=== PATIENT | male | born 1935 | race Caucasian/White ===

== ENCOUNTER 2017-05-01 17:38 | Inpatient (IN) | payer MEDICARE ==
[~2017-05-01] VITALS: Ht 162.6 cm; Wt 81.2 kg
[~2017-05-01 17:38] MED LIST: SIMV40TA5 PO; WARF1TAB6 PO; WARF5TAB6 PO
--- NOTE | 2017-05-01 19:30 | NUR ---
RN NOTES PATIENT ADMITTED FROM [place]. BROUGHT IN [facility] WITH TRANSPORT STAFF. PLACED LDR RN. CLEANED AND KEPT COMFORTABLE.
[2017-05-01 20:00] VITALS: BP 120/80
[2017-05-01] MEDS ORDERED: DOCU100C36 PO ×2 (21:22)
[2017-05-01] MEDS ORDERED: POTA20TA83 PO (21:22)
[2017-05-01] MEDS ORDERED: MULT1TAB73 PO (21:22)
[2017-05-01] MEDS ORDERED: METO25TA6 PO (21:22)
[2017-05-01] MEDS ORDERED: ASCO500T9 PO (21:22)
[2017-05-01] MEDS ORDERED: ZOLPIDEM TARTRATE 5 MG TABLET PO PRN (22:30)
[2017-05-01] MEDS ORDERED: Z GUARD REMEDY 2 OZ OINT TP PRN (22:30)
[2017-05-01] MEDS ORDERED: ACETAMINOPHEN 325 MG TABLET PO PRN (22:30)
[2017-05-01] MEDS ORDERED: ONDANSETRON HCL/PF 4 MG/2 ML VIAL IVP PRN (22:30)
[2017-05-01] MEDS ORDERED: MAGNESIUM HYDROXIDE 30 ML UDC PO PRN (22:30)
[2017-05-01] MEDS ORDERED: MAG HYDROX/AL HYDROX/SIMETH 30 ML UDC PO PRN (22:30)
[2017-05-01] MEDS ORDERED: HYDROCODONE/APAP 5/325MG 1 EACH TABLET PO PRN (22:30)
[2017-05-01] MEDS ORDERED: IV NS 0.9% 1,000 ML IV PRN (23:00)
[2017-05-01 23:15] LABS: BASOPHILS % (AUTO) 0.2 % (0.0-2.0); EOSINOPHILS # (AUTO) 0.1 /CMM (0.0-0.7); EOSINOPHILS % (AUTO) 0.5 % (0.0-6.0); HEMATOCRIT 29 % (39-51); HEMOGLOBIN 9.7 g/dL (13.5-17.5); LYMPHOCYTES # (AUTO) 1.2 /CMM (0.8-4.8); LYMPHOCYTES % (AUTO) 12.2 % (20.0-44.0); MEAN CORPUSCULAR HEMOGLOBIN 29 PG (26.0-33.0); MEAN CORPUSCULAR HGB CONC 34 g/dl (31.0-36.0); MEAN CORPUSCULAR VOLUME 88 fL (80-96); MONOCYTES # (AUTO) 0.7 /CMM (0.1-1.30); MONOCYTES % (AUTO) 6.9 % (2.0-12.0); NEUTROPHILS % (AUTO) 80.2 % (43.0-81.0); PLATELET COUNT (AUTO) 138 /CMM (150-450); RDW COEFFICIENT OF VARIATION 18.4 (11.5-15.0)
[2017-05-01 23:45] LABS: ALANINE AMINOTRANSFERASE 51 U/L (12-78); ALBUMIN 2.6 g/dL (3.4-5.0); ALKALINE PHOSPHATASE 41 U/L (46-116); ASPARTATE AMINOTRANSFERASE 29 U/L (15-37); B-TYPE NATRIURETIC PEPTIDE 470 PG/ML (0-125); BILIRUBIN,TOTAL 0.6 mg/dL (0.2-1.0); CARBON DIOXIDE 22 mmol/L (21-32); CHLORIDE 119 mmol/L (98-107); GLUCOSE 104 mg/dL (74-106); PHOSPHORUS 4.1 mg/dL (2.5-4.9); POTASSIUM 3.6 mmol/L (3.5-5.1); SODIUM SERUM 152 mmol/L (136-145); TOTAL PROTEIN, SERUM 5.8 g/dL (6.4-8.2)
[2017-05-01 23:56] LABS: UREA NITROGEN, BLOOD 53 mg/dL (7-18)
[2017-05-02] VITALS: BP 128/67
[2017-05-02 00:10] LABS: APPEARANCE,URINE CLOUDY (CLEAR); BILIRUBIN,URINE NEGATIVE (NEGATIVE); BLOOD, URINE NEGATIVE Ery/uL (NEGATIVE); COLOR,URINE YELLOW (YELLOW); KETONES,URINE NEGATIVE (NEGATIVE); LEUKOCYTE ESTERASE ,URINE 3+ (NEGATIVE); NITRITE, URINE POSITIVE (NEGATIVE); PH,URINE 7.5 (5.0-8.0); PROTEIN,URINE 1+ mg/dl (NEGATIVE); UGLUCOSE NEGATIVE (NEGATIVE); UROBILINOGEN,URINE 0.2 EU/dL (0.2)
[2017-05-02 00:20] LABS: BACTERIA,URINE Many /HPF (None Seen); RBC,URINE 21-50 /HPF (0-2); WBC,URINE 0-2 /HPF (0-3)
[2017-05-02 00:21] LABS: SQUAMOUS EPITHELIAL CELL,UR None Seen /HPF (None Seen); URINE AMORPHOUS PHOSPHATES Moderate /HPF (None Seen)
[2017-05-02] MEDS ORDERED: VANCOMYCIN 1 GM in IV D5W 250 ML IV ONE (01:30)
[2017-05-02] MEDS ORDERED: PIPERACILLIN /TAZOBACTAM 3.375 G in IV D5W 50 ML IV ONE (01:30)
[2017-05-02] MEDS ORDERED: PIPERACILLIN /TAZOBACTAM 3.375 G VIAL IV ONE (01:57)
[2017-05-02] MEDS ORDERED: VANCOMYCIN 1 GM VIAL ONE (01:57)
[2017-05-02 04:00] VITALS: BP 133/70
--- NOTE | 2017-05-02 05:51 | NUR ---
HISTOLOGIC AIDE NOTES NOTED IV SITE ON LEFT AC DISLODGED. MODERATE BLEEDING NOTED. SECURED WITH PRESSURE DRESSING TO STOP BLEEDING. PATIENT WAS SLEEPING AND VERBALZIED HE DID NOT KNOW HOW IT CAME OFF. NO MORE ACTIVE BLEEDING NOTED.
[2017-05-02] MEDS ORDERED: PIPERACILLIN /TAZOBACTAM 3.375 G in IV D5W 50 ML IV SCH (06:00)
[2017-05-02 07:14] LABS: EOSINOPHILS # (AUTO) 0.1 /CMM (0.0-0.7); EOSINOPHILS % (AUTO) 0.9 % (0.0-6.0); HEMATOCRIT 28 % (39-51); HEMOGLOBIN 9.5 g/dL (13.5-17.5); LYMPHOCYTES # (AUTO) 0.9 /CMM (0.8-4.8); LYMPHOCYTES % (AUTO) 9.4 % (20.0-44.0); MEAN CORPUSCULAR HEMOGLOBIN 30 PG (26.0-33.0); MEAN CORPUSCULAR HGB CONC 34 g/dl (31.0-36.0); MEAN CORPUSCULAR VOLUME 88 fL (80-96); MONOCYTES # (AUTO) 0.6 /CMM (0.1-1.30); MONOCYTES % (AUTO) 5.8 % (2.0-12.0); NEUTROPHILS # (AUTO) 8.2 /CMM (1.8-8.9); NEUTROPHILS % (AUTO) 83.9 % (43.0-81.0); PLATELET COUNT (AUTO) 132 /CMM (150-450); RDW COEFFICIENT OF VARIATION 18.6 (11.5-15.0); RED BLOOD CELL COUNT(AUTO) 3.19 MIL/uL (4.5-6.0); WHITE BLOOD COUNT (AUTO) 9.8 K/uL (4.3-11.0)
--- NOTE | 2017-05-02 07:31 | NUR ---
RN NOTES RECEIVED PT FROM RAILROAD BAGGAGE PORTER, A&0X1-2, 2L ON THE NC SATING WELL NO SOB OR DISTRESS NOTED. A FIB ON THE TELE IMTIAZ HR 95. CORDERO DRAINING TO GRAVITY YELLOW IN COLOR. R WRIST 20G IV SITE INTACT IVF 75ML/HR. PT CURRENTLY NPO, AWAITING SWALLOW EVAL. BED LOCKED AND IN LOWEST POSITION, CALL LIGHT WITHIN REACH, SIDE RAILS UPX3, WILL CONT TO IMTIAZ.
[2017-05-02 07:47] LABS: CARBON DIOXIDE 23 mmol/L (21-32); CHLORIDE 121 mmol/L (98-107); GLUCOSE 99 mg/dL (74-106); PHOSPHORUS 3.8 mg/dL (2.5-4.9); POTASSIUM 3.9 mmol/L (3.5-5.1); SODIUM SERUM 154 mmol/L (136-145); UREA NITROGEN, BLOOD 43 mg/dL (7-18)
[2017-05-02 07:56] LABS: CHOLESTEROL 79 mg/dL (<200); HDL CHOLESTEROL 22 mg/dL (40-60); LDL 52 mg/dL (0-99); TRIGLYCERIDES 52 mg/dL (30-150)
[2017-05-02 08:00] VITALS: BP 142/87
[2017-05-02] MEDS ORDERED: SIMVASTATIN 40 MG TABLET PO SCH (09:00)
[2017-05-02] MEDS ORDERED: WARFARIN SODIUM 1 MG TABLET PO SCH (09:00)
[2017-05-02] MEDS ORDERED: WARFARIN SODIUM 5 MG TABLET PO SCH (09:00)
[2017-05-02] MEDS ORDERED: DOCUSATE SODIUM 250 MG CAPSULE PO PRN (09:00)
[2017-05-02] MEDS: PIPERACILLIN /TAZOBACTAM 3.375 G in IV D5W 50 ML IV SCH ×3 (09:03→22:15)
--- NOTE | 2017-05-02 09:29 | NUR ---
RN NOTES 0900 AM MEDS BEING HELD, AWAITING SWALLOW EVAL.
[2017-05-02] MEDS ORDERED: FEE PK DOSING 1 MIN EA MC ONE (10:25)
[2017-05-02] MEDS: IV D5W 1,000 ML IV PRN (10:49)
[2017-05-02] MEDS: ASCORBIC ACID 500 MG TABLET PO SCH (11:49)
[2017-05-02] MEDS: METOPROLOL TARTRATE 25 MG TABLET PO SCH ×2 (11:49→16:13)
[2017-05-02] MEDS: ASPIRIN 81 MG TAB.CHEW PO SCH (11:50)
[2017-05-02 12:00] VITALS: BP 131/77
[2017-05-02 12:40] LABS: INR 11.45 (0.87-1.13)
--- NOTE | 2017-05-02 12:47 | NUR ---
RN NOTES INR 11.45, DR GEORGE MADE AWARE. ORDER TO HOLD COUMADIN.
[2017-05-02] MEDS ORDERED: PHYTONADIONE INJ 10 MG in IV D5W 50 ML IV ONE (13:30)
[2017-05-02] MEDS: VANCOMYCIN 0.75 GM in IV D5W 250 ML IV SCH (14:45)
[2017-05-02 16:00] VITALS: BP 127/78
--- NOTE | 2017-05-02 17:27 | NUR ---
Patient resides at [facility] [id number] [place] [address] [place] [phone].Patient has history of CVA, chronic Afib, HTN, pulmonary HTN, left BKA. Patient is confined to chair most of the time, requires max assist with adl'S. Current plan is to return to [facility] vs short term SNF. Addendum: 05/02/17 at 1728 by ABEBA ROCHA RN Amended: Links added.
[2017-05-02 20:00] VITALS: BP 125/77
--- NOTE | 2017-05-02 20:02 | NUR ---
RN TEL INITIAL NOTES RECEIVED PT FROM NETWORK CONTROLLER, A&0X1-2, 2L ON THE NC SATING WELL NO SOB OR DISTRESS NOTED. NSR 77. CORDERO DRAINING TO GRAVITY YELLOW IN COLOR. R WRIST 20G IV SITE INTACT IVF 75ML/HR. BED LOCKED AND IN LOWEST POSITION, CALL LIGHT WITHIN REACH, SIDE RAILS UPX3, WILL CONT TO IMTIAZ.
[2017-05-02] MEDS: ATORVASTATIN 10 MG TABLET PO SCH (22:14)
[2017-05-03] VITALS: BP 126/77
[2017-05-03] MEDS: PIPERACILLIN /TAZOBACTAM 3.375 G in IV D5W 50 ML IV SCH ×4 (02:17→20:32)
[2017-05-03] MEDS: VANCOMYCIN 0.75 GM in IV D5W 250 ML IV SCH (02:51)
[2017-05-03 04:00] VITALS: BP 143/69
--- NOTE | 2017-05-03 07:27 | NUR ---
LOG CHIPPER OPERATOR NOTES RECEIVED PT ON BED SLEEPING. ALERT ORIENTED X2. EPISODES OF CONFUSION. ON NASAL CANNULA ON AND OFF SATURATING WELL. NO SIGN OF RESPIRATORY DISTRESS. ON TELE MONITOR AFIB CONTROLLED. IV ACCESS ON R WRIST #20 D52 @30CC/HR RUNNING WELL. NO SIGN ON INFILTRATION. HEAD OF BED ELEVATED. SIDE RAILS UP. BED ALARM ON. CALL LIGHT WITHIN REACH. WILL MONITOR PT CLOSELY.
--- NOTE | 2017-05-03 07:27 | NUR ---
RN NOTES PT ASLEEP WELL ON BED. BREATHING EVEN AND UNLABORED IN RA. SATING 96% REMAINED A-FIB HR 90'S COMPLAINED OF GENERALIZED PAIN BUT PRN PAIN MEDICINE HELP AFTER 30 MINUTES. PT ASLEEP AT THIS TIME. NO ASE FROM IV ATB. REFUSED TO HAVE BED BATH PT JUST WANTED TO SLEEP. ENDORSED TO AM SHIFT TO COLLECT STOOL IF THER IS STOOL. CALL LIGHT KEPT WITHIN EASY REACH.
[2017-05-03 08:00] VITALS: BP 108/69
[2017-05-03 08:21] LABS: BASOPHILS % (AUTO) 0.1 % (0.0-2.0); EOSINOPHILS # (AUTO) 0.2 /CMM (0.0-0.7); EOSINOPHILS % (AUTO) 2.9 % (0.0-6.0); HEMATOCRIT 25 % (39-51); HEMOGLOBIN 8.3 g/dL (13.5-17.5); LYMPHOCYTES # (AUTO) 0.8 /CMM (0.8-4.8); LYMPHOCYTES % (AUTO) 9.3 % (20.0-44.0); MEAN CORPUSCULAR HEMOGLOBIN 30 PG (26.0-33.0); MEAN CORPUSCULAR HGB CONC 34 g/dl (31.0-36.0); MEAN CORPUSCULAR VOLUME 88 fL (80-96); MONOCYTES # (AUTO) 0.5 /CMM (0.1-1.30); MONOCYTES % (AUTO) 5.6 % (2.0-12.0); NEUTROPHILS # (AUTO) 7.1 /CMM (1.8-8.9); NEUTROPHILS % (AUTO) 82.1 % (43.0-81.0); PLATELET COUNT (AUTO) 125 /CMM (150-450); RDW COEFFICIENT OF VARIATION 17.6 (11.5-15.0); RED BLOOD CELL COUNT(AUTO) 2.81 MIL/uL (4.5-6.0); WHITE BLOOD COUNT (AUTO) 8.6 K/uL (4.3-11.0)
[2017-05-03 08:42] LABS: INR 1.35 (0.87-1.13)
[2017-05-03 08:48] LABS: FERRITIN 47 ng/mL (8-388)
[2017-05-03 08:52] LABS: CALCIUM, SERUM 7.8 mg/dL (8.5-10.1); CARBON DIOXIDE 24 mmol/L (21-32); CHLORIDE 112 mmol/L (98-107); CREATININE 0.9 mg/dL (0.6-1.3); GLUCOSE 88 mg/dL (74-106); POTASSIUM 3.2 mmol/L (3.5-5.1); SODIUM SERUM 144 mmol/L (136-145); UREA NITROGEN, BLOOD 26 mg/dL (7-18)
[2017-05-03] MEDS: METOPROLOL TARTRATE 25 MG TABLET PO SCH ×2 (09:00→18:44)
[2017-05-03 09:01] LABS: IRON, SERUM 141 ug/dl (50-175); TOTAL IRON BINDING CAPACITY 209 ug/dl (250-450)
[2017-05-03] MEDS ORDERED: POTASSIUM CHLORIDE 20 MEQ TAB.PRT.SR PO ONE (09:30)
[2017-05-03] MEDS: ASCORBIC ACID 500 MG TABLET PO SCH (09:33)
[2017-05-03] MEDS: DOCUSATE SODIUM 100 MG CAPSULE PO SCH (09:33)
[2017-05-03] MEDS: ASPIRIN 81 MG TAB.CHEW PO SCH (09:33)
[2017-05-03 12:00] VITALS: BP 109/65
[2017-05-03] MEDS: SOD FERRIC GLUC 125 MG in IV NS 0.9% 100 ML IV SCH (14:38)
[2017-05-03 16:00] VITALS: BP 114/72
--- NOTE | 2017-05-03 19:38 | NUR ---
WEB METHODS DEVELOPER NOTES NO ACUTE CHANGES NOTED DURING THE SHIFT. HEAD OF BED ELEVATED. SIDE RAILS UP. CALL LIGHT WITHIN REACH. DUE MEDS GIVEN. ENDORSE TO THE PM NURSE FOR FARIBA.
[2017-05-03 20:00] VITALS: BP 131/72
--- NOTE | 2017-05-03 20:00 | NUR ---
RN NOTES RECEIVED PATIENT AWAKE, RESTING COMFORTABLY IN BED WATCHING TV WITH NO RESPIRATORY DISTRESS OR SHORTNESS OF BREATH. BREATHING EVEN AND UNLABORED. ALERT AND ORIENTED. ABLE TO VERBALLY COMMUNICATE NEEDS. NO COMPLAINT OF PAIN OR DISCOMFORT. SUPRAPUBIC CATH IN PLACE DRAINING CLEAR YELLOW WITH NO FOUL ODOR URINE. VITAL SIGNS WNL. WILL CONTINUE TO MONITOR
[2017-05-03] MEDS: ATORVASTATIN 10 MG TABLET PO SCH (22:20)
[2017-05-04] VITALS (7 sets, daily range): BP systolic 108–127; BP diastolic 47–74
[2017-05-04] MEDS: PIPERACILLIN /TAZOBACTAM 3.375 G in IV D5W 50 ML IV SCH ×4 (01:40→20:19)
[2017-05-04] MEDS: IV D5W 1,000 ML IV PRN (05:10)
--- NOTE | 2017-05-04 06:23 | NUR ---
RN CLOSING NOTES RESTING COMFORTABLY IN BED WITH NO DISTRESS NOTED. BREATHING EVEN AND UNLABORED. NO COMPLAINT OF PAIN OR DISCOMFORT. NO SIGNIFICANT CHANGE OF CONDITION. WILL ENDORSE TO AM SHIFT FOR CONTINUITY OF CARE
--- NOTE | 2017-05-04 07:24 | NUR ---
APPRENTICE STYLIST NOTES PT IN BED, AWAKE, ALERT AND ORIENTED, DENIES PAIN, NOT IN DISTRESS, CALL LIGHT WITHIN REACH, IV FLUIDS INFUSING WELL, NEEDS ATTENDED, KEPT COMFORTABLE IN BED.
[2017-05-04] MEDS: DOCUSATE SODIUM 100 MG CAPSULE PO SCH (08:03)
[2017-05-04] MEDS: METOPROLOL TARTRATE 25 MG TABLET PO SCH ×2 (08:04→17:03)
[2017-05-04] MEDS: ASPIRIN 81 MG TAB.CHEW PO SCH (08:04)
[2017-05-04] MEDS: ASCORBIC ACID 500 MG TABLET PO SCH (08:04)
[2017-05-04 08:12] LABS: EOSINOPHILS # (AUTO) 0.2 /CMM (0.0-0.7); HEMATOCRIT 24 % (39-51); HEMOGLOBIN 8.1 g/dL (13.5-17.5); LYMPHOCYTES % (AUTO) 13.2 % (20.0-44.0); MEAN CORPUSCULAR HEMOGLOBIN 30 PG (26.0-33.0); MEAN CORPUSCULAR HGB CONC 34 g/dl (31.0-36.0); MEAN CORPUSCULAR VOLUME 89 fL (80-96); MONOCYTES # (AUTO) 0.4 /CMM (0.1-1.30); MONOCYTES % (AUTO) 5.1 % (2.0-12.0); NEUTROPHILS # (AUTO) 5.8 /CMM (1.8-8.9); NEUTROPHILS % (AUTO) 78.7 % (43.0-81.0); PLATELET COUNT (AUTO) 127 /CMM (150-450); RDW COEFFICIENT OF VARIATION 17.2 (11.5-15.0); RED BLOOD CELL COUNT(AUTO) 2.71 MIL/uL (4.5-6.0); WHITE BLOOD COUNT (AUTO) 7.3 K/uL (4.3-11.0)
[2017-05-04 08:30] LABS: CALCIUM, SERUM 7.4 mg/dL (8.5-10.1); CARBON DIOXIDE 26 mmol/L (21-32); CHLORIDE 107 mmol/L (98-107); CREATININE 0.7 mg/dL (0.6-1.3); GLUCOSE 83 mg/dL (74-106); MAGNESIUM 1.7 mg/dL (1.8-2.4); PHOSPHORUS 2.6 mg/dL (2.5-4.9); POTASSIUM 3.2 mmol/L (3.5-5.1); SODIUM SERUM 140 mmol/L (136-145); UREA NITROGEN, BLOOD 17 mg/dL (7-18)
[2017-05-04] MEDS ORDERED: POTASSIUM CHLORIDE 20 MEQ TAB.PRT.SR PO ONE (11:00)
[2017-05-04] MEDS: Magnesium 1GM/D5W 100ML PREMIX 100 ML IV SCH ×3 (11:23→13:44)
--- NOTE | 2017-05-04 12:11 | NUR ---
DIRECTOR ORGANIZATIONAL NOTES PT IN BED, AWAKE, ALERT TO SELF, WITH PERIODS OF CONFUSION, DENIES PAIN, NOT IN DISTRESS, IV FLUIDS INFUSING WELL, ELECTROLYTES BEING REPLACED, CALL LIGHT WITHIN REACH, NEEDS ATTENDED.
[2017-05-04] MEDS: SOD FERRIC GLUC 125 MG in IV NS 0.9% 100 ML IV SCH (15:31)
--- NOTE | 2017-05-04 18:04 | NUR ---
MAINTENANCE PLUMBER NOTES PT IN BED, AWAKE, ALERT TO SELF, WATCHING TV, VERBALLY RESPONSIVE, WITH CONFUSION, DENIES PAIN, NOT IN DISTRESS, CALL LIGHT WITHIN REACH, VISITED BY DAUGHTER TIESHA, PLAN OF CARE DISCUSSED WITH DAUGHTER, VERBALIZED UNDERSTANDING, ASSISTED WITH MEALS, PM MEDS GIVEN, PM CARE RENDERED, ALL NEEDS ATTENDED.
--- NOTE | 2017-05-04 20:02 | NUR ---
TELE/RN OPENING NOTES PATIENTIN BED, AWAKE, ALERT X2, CALM AND COOPERATIVE TO CARE, SKIN WARM TO TOUCH, ON ROOM AIR, RESPIRATIONS EVEN AND UNLABORED. TELE READING AFIB 84, WITH SUPRAPUBIC CATHETER, DRAINING URINE, CALM AND COOPERATIVE TO CARE, ABLE TO FEED SELF WITH SUPERVISION, HOB ELEVATED. RECEIVED ENDORSEMENT FROM AM RN FOR FARIBA, REPLACED ELECTROLYTES, WILL CONTINUE TO MONITOR.
[2017-05-04 20:33] LABS: URINE SODIUM, RANDOM 101 mmol/l (40-220)
[2017-05-04 20:46] LABS: OSMOLALITY,URINE 786 mOS/kg (340-1090)
[2017-05-04] MEDS: ATORVASTATIN 10 MG TABLET PO SCH (20:54)
[2017-05-05] VITALS: BP_SYST 110; BP_DIAS 47; BP_DIAS 56
[2017-05-05] MEDS: PIPERACILLIN /TAZOBACTAM 3.375 G in IV D5W 50 ML IV SCH ×4 (00:57→20:33)
[2017-05-05 03:41] VITALS: BP 112/69
[2017-05-05 04:00] VITALS: BP 112/69
--- NOTE | 2017-05-05 07:49 | NUR ---
TELE/RN NOTES PATIENT IN BED,RESTING COMFORTABLY IN BED AT THIS TIME SKIN WARM TO TOUCH, ON ROOM AIR, RESPIRATIONS EVEN AND UNLABORED. TELE READING AFIB 78, WITH SUPRAPUBIC CATHETER, WITH YELLOW COLOR COLOR NOTED , HOB ELEVATED. WILL CONTINUE TO MONITOR. RT FA HL INTACT NO S\S INFECTION NOTED ,ON IVF ORDERED , BED IN LOWEST AND LOCKED POSITION ,
[2017-05-05 07:55] LABS: BASOPHILS % (AUTO) 0.1 % (0.0-2.0); EOSINOPHILS # (AUTO) 0.2 /CMM (0.0-0.7); EOSINOPHILS % (AUTO) 2.2 % (0.0-6.0); HEMATOCRIT 26 % (39-51); HEMOGLOBIN 8.7 g/dL (13.5-17.5); LYMPHOCYTES # (AUTO) 0.9 /CMM (0.8-4.8); LYMPHOCYTES % (AUTO) 9.7 % (20.0-44.0); MEAN CORPUSCULAR HEMOGLOBIN 30 PG (26.0-33.0); MEAN CORPUSCULAR HGB CONC 33 g/dl (31.0-36.0); MEAN CORPUSCULAR VOLUME 89 fL (80-96); MONOCYTES # (AUTO) 0.4 /CMM (0.1-1.30); MONOCYTES % (AUTO) 4.4 % (2.0-12.0); NEUTROPHILS # (AUTO) 8.2 /CMM (1.8-8.9); NEUTROPHILS % (AUTO) 83.6 % (43.0-81.0); PLATELET COUNT (AUTO) 142 /CMM (150-450); RDW COEFFICIENT OF VARIATION 17.4 (11.5-15.0); RED BLOOD CELL COUNT(AUTO) 2.95 MIL/uL (4.5-6.0); WHITE BLOOD COUNT (AUTO) 9.8 K/uL (4.3-11.0)
[2017-05-05 08:00] VITALS: BP_SYST 129; BP_DIAS 76; BP_DIAS 78
[2017-05-05 08:03] LABS: CALCIUM, SERUM 7.6 mg/dL (8.5-10.1); CARBON DIOXIDE 27 mmol/L (21-32); CHLORIDE 113 mmol/L (98-107); CREATININE 0.9 mg/dL (0.6-1.3); GLUCOSE 88 mg/dL (74-106); MAGNESIUM 2.3 mg/dL (1.8-2.4); PHOSPHORUS 2.8 mg/dL (2.5-4.9); POTASSIUM 3.8 mmol/L (3.5-5.1); SODIUM SERUM 147 mmol/L (136-145); UREA NITROGEN, BLOOD 13 mg/dL (7-18)
[2017-05-05] MEDS: ASPIRIN 81 MG TAB.CHEW PO SCH (08:14)
[2017-05-05] MEDS: DOCUSATE SODIUM 100 MG CAPSULE PO SCH (08:14)
[2017-05-05] MEDS: ASCORBIC ACID 500 MG TABLET PO SCH (08:15)
[2017-05-05] MEDS: METOPROLOL TARTRATE 25 MG TABLET PO SCH ×2 (08:15→16:22)
--- NOTE | 2017-05-05 11:24 | NUR ---
MS RN NOTE ALL NEEDS ATTENDED , KEEP CLEAN DRY , TURN REPOSITION Q2 HOUR
[2017-05-05] MEDS: SOD FERRIC GLUC 125 MG in IV NS 0.9% 100 ML IV SCH (15:41)
--- NOTE | 2017-05-05 15:55 | NUR ---
MS RN NOTE DR GEORGE AT BEDSIDE, NO NEW ORDER GIVEN AT THIS TIME ,
[2017-05-05 16:00] VITALS: BP 115/64
--- NOTE | 2017-05-05 18:25 | NUR ---
MS RN NOTE ALL NEEDS ATTENDED, ABLE TO FEED SELF WITH ASSISTANCE , CONT ON IVF ORDERED
[2017-05-05 20:00] VITALS: BP 136/67
[2017-05-05] MEDS: ATORVASTATIN 10 MG TABLET PO SCH (21:17)
[2017-05-05] MEDS: IV D5W 1,000 ML IV PRN (21:25)
[2017-05-06 01:32] VITALS: BP 124/64
[2017-05-06] MEDS: PIPERACILLIN /TAZOBACTAM 3.375 G in IV D5W 50 ML IV SCH ×3 (02:14→15:50)
[2017-05-06 04:00] VITALS: BP 129/68
[2017-05-06 08:00] VITALS: BP 114/65
[2017-05-06 08:09] LABS: BASOPHILS # (AUTO) 0.1 /CMM (0.0-0.2); BASOPHILS % (AUTO) 0.5 % (0.0-2.0); EOSINOPHILS # (AUTO) 0.2 /CMM (0.0-0.7); EOSINOPHILS % (AUTO) 1.8 % (0.0-6.0); HEMATOCRIT 25 % (39-51); HEMOGLOBIN 8.2 g/dL (13.5-17.5); LYMPHOCYTES # (AUTO) 0.9 /CMM (0.8-4.8); MEAN CORPUSCULAR HEMOGLOBIN 30 PG (26.0-33.0); MEAN CORPUSCULAR HGB CONC 33 g/dl (31.0-36.0); MEAN CORPUSCULAR VOLUME 90 fL (80-96); MONOCYTES # (AUTO) 0.5 /CMM (0.1-1.30); MONOCYTES % (AUTO) 4.6 % (2.0-12.0); NEUTROPHILS # (AUTO) 9.2 /CMM (1.8-8.9); NEUTROPHILS % (AUTO) 85.1 % (43.0-81.0); PLATELET COUNT (AUTO) 179 /CMM (150-450); RDW COEFFICIENT OF VARIATION 17.6 (11.5-15.0); RED BLOOD CELL COUNT(AUTO) 2.76 MIL/uL (4.5-6.0); WHITE BLOOD COUNT (AUTO) 10.8 K/uL (4.3-11.0)
[2017-05-06 08:21] LABS: CALCIUM, SERUM 7.4 mg/dL (8.5-10.1); CARBON DIOXIDE 28 mmol/L (21-32); CHLORIDE 107 mmol/L (98-107); CREATININE 0.8 mg/dL (0.6-1.3); GLUCOSE 97 mg/dL (74-106); PHOSPHORUS 2.1 mg/dL (2.5-4.9); POTASSIUM 3.7 mmol/L (3.5-5.1); SODIUM SERUM 140 mmol/L (136-145); UREA NITROGEN, BLOOD 11 mg/dL (7-18)
[2017-05-06] MEDS: ASCORBIC ACID 500 MG TABLET PO SCH (08:31)
[2017-05-06] MEDS: DOCUSATE SODIUM 100 MG CAPSULE PO SCH (08:31)
[2017-05-06] MEDS: ASPIRIN 81 MG TAB.CHEW PO SCH (08:31)
[2017-05-06] MEDS: METOPROLOL TARTRATE 25 MG TABLET PO SCH ×2 (08:32→16:57)
[2017-05-06] MEDS ORDERED: LEVO500T75 PO (09:38)
[2017-05-06] MEDS ORDERED: ATOR10TA PO (09:38)
[2017-05-06] MEDS ORDERED: ASPI-1169 PO (09:38)
[2017-05-06] MEDS ORDERED: SULF1TAB47 PO (09:40)
[2017-05-06] MEDS ORDERED: POTASSIUM PHOSPHATE MM 15 MMOL in IV D5W 250 ML IV SCH (10:00)
[2017-05-06] MEDS ORDERED: Potassium Phosphate meq 11 MEQ in IV NS 0.9% 100 ML IV SCH (10:00)
[2017-05-06] MEDS ORDERED: K PHOS NEUTRAL 250 MG TABLET PO ONE (14:00)
[2017-05-06] MEDS: SOD FERRIC GLUC 125 MG in IV NS 0.9% 100 ML IV SCH (14:30)
[2017-05-06 16:00] VITALS: BP 121/67
[2017-05-06 16:57] VITALS: BP 121/67
[2017-05-06] MEDS ORDERED: FLU VACC QS 2017-18(36MOS+)/PF 0.5 ML DISP.SYRIN IM ONE (17:00)
--- NOTE | 2017-05-06 19:00 | NUR ---
RN M/S NOTE: PATIENT WAS DISCHARGED W/ HER DAUGHTER, TIESHA W/ ALL BELONGINGS INCLUDING THE PRESCRIPTION FOR ASPIRIN, LIPITOR AND BACTRIM. TIESHA WAS GIVEN THE DISCHARGE INSTRUCTIONS AND UNDERSTOOD IT. SHE WAS INFORMED THAT MEGHAN ([employer]) FROM [facility] WAS AWARE OF THE PATIENT'S ADMISSION TO THE FACILITY. MEGHAN WAS ALSO INFORMED OF THE ADMINISTRATION OF INFLUENZA VACCINE TODAY PER DAUGHTER'S REQUEST. PATIENT AND DAUGHTER WAS ACCOMPANIED BY THE FIELD SALES CONSULTANT TO THE MAIN LOBBY AND PATIENT WAS ON HIS WHEELCHAIR.
== END 2017-05-06 20:06 | DRG 698 ==
LOC: TELE1 19:25 → MEDSG1 05-05 09:37
PROVIDERS: ADMIT Nurse Practitioner Acute Care; ATTEND Nurse Practitioner Acute Care
DX: T83.518A Infection and inflammatory reaction due to other urinary catheter, initial encounter (principal); A41.9 Sepsis, unspecified organism; E46 Unspecified protein-calorie malnutrition; E87.0 Hyperosmolality and hypernatremia; I27.20 Pulmonary hypertension, unspecified; E83.42 Hypomagnesemia; I48.2 Chronic atrial fibrillation; I11.0 Hypertensive heart disease with heart failure; I50.9 Heart failure, unspecified; I69.351 Hemiplegia and hemiparesis following cerebral infarction affecting right dominant side; N39.0 Urinary tract infection, site not specified; D63.8 Anemia in other chronic diseases classified elsewhere; E78.5 Hyperlipidemia, unspecified; E86.0 Dehydration; Z79.01 Long term (current) use of anticoagulants; Z82.49 Family history of ischemic heart disease and other diseases of the circulatory system; Z87.891 Personal history of nicotine dependence; Z89.512 Acquired absence of left leg below knee; I72.4 Aneurysm of artery of lower extremity; R73.9 Hyperglycemia, unspecified; Z74.01 Bed confinement status; E87.6 Hypokalemia; I25.10 Atherosclerotic heart disease of native coronary artery without angina pectoris; I73.9 Peripheral vascular disease, unspecified; B95.2 Enterococcus as the cause of diseases classified elsewhere; B95.62 Methicillin resistant Staphylococcus aureus infection as the cause of diseases classified elsewhere; Z79.82 Long term (current) use of aspirin; Z79.899 Other long term (current) drug therapy; Z68.30 Body mass index [BMI] 30.0-30.9, adult
CPT/HCPCS: 36415; 80048-TC; 80053-TC; 80061-TC; 80202-TC; 81000-TC; 82728-TC; 83540-TC; 83605-TC; 83735-TC; 83880; 83935-TC; 84100-TC; 84300-TC; 85025-TC; 85610-TC; 86850-TC; 87040-TC; 87081-TC; 87086-TC; 92521; J2543; J2916; J3370; J3430; J3475; J3490; J7030; J7042; J7060; J7070; Q2036; Z7610

== ENCOUNTER 2017-09-14 21:41 | Inpatient (IN) | payer MEDICARE ==
[~2017-09-14] VITALS: Ht 190.5 cm; Wt 73.0 kg
[~2017-09-14 21:41] MED LIST changes: +ASCO500T9 PO; +ASPI-1169 PO; +ATOR10TA PO; +DOCU100C36 PO; +METO25TA6 PO; +MULT1TAB73 PO; +POTA20TA83 PO; +SULF1TAB47 PO; +WARF-58 PO; -WARF1TAB6 PO; +WARF1TAB86 PO; -WARF5TAB6 PO
[2017-09-15 01:10] VITALS: BP 150/88
--- NOTE | 2017-09-15 01:30 | NUR ---
HOPPER ATTENDANT NOTE PATIENT ARRIVED TO 3W FROM [place] DUE TO ALOC AND POOR PO INTAKE. PATIENT IS ALERT AND APHASIC, NO S/S OF RESPIRATORY DISTRESS, BREATHING NON-LABORED, NO FACIAL GRIMACE NOTED. LEFT AKA, SUPRAPUBIC CATHETER PRESENT WITH MARINO URINE PRESENT. IV ON LEFT WRIST IS PATENT AND INTACT. PATIENT HAS MULTIPLE SCABS ON HIS HEAD, CHEST, BUE. SACRAL REDNESS NOTED ALSO. PICTURES TAKEN AND PUT THEM IN A CHART. TELE MONITOR SR 83. SRX2, BED IN LOW POSITION, CALL LIGHT WITHIN REACH, WILL CONTINUE TO MONITOR PATIENT.
[2017-09-15] MEDS ORDERED: ALBUTEROL FS 2.5 MG/3 ML VIAL.NEB NEB PRN (02:30)
[2017-09-15] MEDS ORDERED: MORPHINE SULFATE INJ 2 MG/ML DISP.SYRIN IV PRN (02:30)
[2017-09-15] MEDS ORDERED: Z GUARD REMEDY 2 OZ OINT TP PRN (02:30)
[2017-09-15] MEDS ORDERED: ACETAMINOPHEN 325 MG TABLET PO PRN (02:30)
[2017-09-15] MEDS ORDERED: ONDANSETRON HCL/PF 4 MG/2 ML VIAL IVP PRN (02:30)
--- NOTE | 2017-09-15 03:21 | NUR ---
BARREL HANDLER NOTE PATIENT'S K LEVEL ON RENDON PAPER WAS 3.0. PAGED DR SCHILLING AND GOT AN ORDER OF K 10MEQ IV ONCE. ORDERS PUT IN AND WILL CARRY OUT.
[2017-09-15] MEDS ORDERED: POTASSIUM CHLORIDE 10 MEQ/50 ML PREMIXED IVPB FOR PERIPHERAL LINE IV ONE (03:30)
[2017-09-15] MEDS ORDERED: VANCOMYCIN 1 GM VIAL ONE (03:58)
[2017-09-15] MEDS ORDERED: VANCOMYCIN 1 GM in IV NS 0.9% 250 ML IV ONE (04:00)
[2017-09-15] MEDS ORDERED: POTASSIUM CL. PREMIX PERIPHER. 50 ML IV SCH (04:00)
--- NOTE | 2017-09-15 05:10 | NUR ---
PLATE AND WELD INSPECTOR NOTE DELAYED VANCO 1G IV ADMINISTRATION DUE TO KCL REPLACEMENT AT 0400.
--- NOTE | 2017-09-15 06:46 | NUR ---
SHINGLE GRADER NOTE PATIENT IS SLEEPING IN BED COMFORTABLY, NO ACUTE DISTRESS PRESENT AFTER ADMISSION. IV ON LEFT WRIST IS PATENT AND INTACT, IV ABX IS RUNNING. MORNING CARE RENDERED, CORDERO EMPTIED. WILL ENDORSE TO DAY SHIFT NURSE FOR FARIBA.
[2017-09-15 08:00] VITALS: BP 163/99
[2017-09-15] MEDS: ASPIRIN 81 MG TAB.CHEW PO SCH (08:36)
[2017-09-15] MEDS: PANTOPRAZOLE 40 MG TABLET.DR PO SCH (08:36)
[2017-09-15] MEDS: DOCUSATE SODIUM 100 MG CAPSULE PO SCH (08:36)
--- NOTE | 2017-09-15 08:36 | NUR ---
INVESTIGATION OFFICER NOTES PATIENT IN BED, AWAKE, APPEARS WEAK. AFIB HR 101 ON THE TELE MONITOR, DENIES PAIN, BREATHING ON ROOM AIR WITH NO SOB. NON PRODUCTIVE COUGH, ABLE TO SPIT OUT PHLEGM-ABBOTT, BROWN COLOR AND THICK. PRESENCE OF SUPRA PUBIC CATH, URINE CLOUDY AND TEA COLOR. BAG OFF THE FLOOR. CALL LIGHT WITHIN REACH, WILL CONT TO MONITOR.
[2017-09-15 08:38] LABS: INR 2.04 (0.87-1.13)
[2017-09-15 08:41] LABS: TROPONIN I < 0.017 ng/mL (0.00-0.056)
[2017-09-15 08:44] LABS: ALANINE AMINOTRANSFERASE 15 U/L (12-78); ALBUMIN 2.6 g/dL (3.4-5.0); ALKALINE PHOSPHATASE 56 U/L (46-116); ASPARTATE AMINOTRANSFERASE 16 U/L (15-37); B-TYPE NATRIURETIC PEPTIDE 1035 PG/ML (0-125); BILIRUBIN,TOTAL 0.8 mg/dL (0.2-1.0); CALCIUM, SERUM 8.4 mg/dL (8.5-10.1); CARBON DIOXIDE 24 mmol/L (21-32); CHLORIDE 114 mmol/L (98-107); CREATININE 0.8 mg/dL (0.6-1.3); GLUCOSE 119 mg/dL (74-106); MAGNESIUM 1.9 mg/dL (1.8-2.4); PHOSPHORUS 2.2 mg/dL (2.5-4.9); POTASSIUM 3.8 mmol/L (3.5-5.1); SODIUM SERUM 146 mmol/L (136-145); TOTAL PROTEIN, SERUM 6.7 g/dL (6.4-8.2); UREA NITROGEN, BLOOD 23 mg/dL (7-18)
[2017-09-15 08:48] LABS: CHOLESTEROL 110 mg/dL (<200); HDL CHOLESTEROL 33 mg/dL (40-60); LDL 71 mg/dL (0-99); THYROID STIMULATING HORMONE 0.664 uIU/mL (0.358-3.74); TRIGLYCERIDES 34 mg/dL (30-150)
[2017-09-15 08:53] LABS: HEMATOCRIT 39 % (39-51); MEAN CORPUSCULAR HEMOGLOBIN 29 PG (26.0-33.0); MEAN CORPUSCULAR HGB CONC 33 g/dl (31.0-36.0); MEAN CORPUSCULAR VOLUME 88 fL (80-96); PLATELET COUNT (AUTO) 167 /CMM (150-450); RDW COEFFICIENT OF VARIATION 17.2 (11.5-15.0); RED BLOOD CELL COUNT(AUTO) 4.43 MIL/uL (4.5-6.0)
[2017-09-15 08:54] LABS: BASOPHILS % (AUTO) 0.2 % (0.0-2.0); EOSINOPHILS % (AUTO) 0.5 % (0.0-6.0); LYMPHOCYTES % (AUTO) 6.6 % (20.0-44.0); MONOCYTES % (AUTO) 5.5 % (2.0-12.0); NEUTROPHILS % (AUTO) 87.2 % (43.0-81.0)
[2017-09-15] MEDS ORDERED: PIPERACILLIN /TAZOBACTAM 3.375 G in IV D5W 50 ML IV ONE (09:00)
[2017-09-15] MEDS ORDERED: FEE PK DOSING 1 MIN EA MC ONE (09:02)
[2017-09-15] MEDS: PIPERACILLIN /TAZOBACTAM 3.375 G in IV D5W 50 ML IV SCH ×3 (09:43→23:30)
[2017-09-15] MEDS ORDERED: K PHOS NEUTRAL 250 MG TABLET PO ONE (12:00)
[2017-09-15 16:00] VITALS: BP 135/72
[2017-09-15] MEDS: METOPROLOL TARTRATE 25 MG TABLET PO SCH (16:17)
[2017-09-15] MEDS: VANCOMYCIN 0.75 GM in IV D5W 250 ML IV SCH (16:32)
[2017-09-15 16:36] VITALS: BP 135/72
[2017-09-15] MEDS: IV NS 0.9% 1,000 ML IV PRN (17:39)
--- NOTE | 2017-09-15 19:01 | NUR ---
MS RN CLOSING NOTES PATIENT IS SITTING UP IN BED, DINNER SERVED WITH FAIR APPETITE. STILL WITH NON PRODUCTIVE COUGH, NO WHEEZING, NO SOB, ABLE TO SPIT OUT PHLEGM. FOR WOUND CONSULT, MULTIPLE DRY SCABS, SKIN RAISE IN THE HEAD AND BUE. SUPRA PUBIC CATH INTACT, DRAINING TO GRAVITY, BAG OFF THE FLOOR, URINE SPECIMEN SEND TO LAB FOR UA TEST. PHOSPHORUS SUPPLEMENTED TODAY ORDERED. AFEBRILE DURING THE SHIFT, CONTINUE ANTIBIOTIC, LABS IN AM PER OFFICIAL COURT INTERPRETER. CALL LIGHT WITHIN REACH REACH, WILL ENDORSE TO ONCOMING RN.
--- NOTE | 2017-09-15 19:30 | NUR ---
RN NOTES RECEIVED PT. AWAKE ON BED, A/OX2, WITH SUPRAPUBIC CATHETER, DENIES PAIN, NO SOB, CALL LIGHT WITHIN REACH, [id number], CONTINUE TO MONITOR
[2017-09-15 20:00] VITALS: BP 115/64
[2017-09-15 20:38] VITALS: BP 115/64
[2017-09-15] MEDS: DOCUSATE SODIUM 250 MG CAPSULE PO SCH (21:30)
[2017-09-15 23:13] LABS: APPEARANCE,URINE SL CLOUDY (CLEAR); BILIRUBIN,URINE NEGATIVE (NEGATIVE); BLOOD, URINE TRACE Ery/uL (NEGATIVE); COLOR,URINE YELLOW (YELLOW); KETONES,URINE NEGATIVE (NEGATIVE); LEUKOCYTE ESTERASE ,URINE 2+ (NEGATIVE); NITRITE, URINE POSITIVE (NEGATIVE); PH,URINE 5.5 (5.0-8.0); PROTEIN,URINE NEGATIVE (NEGATIVE); UGLUCOSE NEGATIVE (NEGATIVE); UROBILINOGEN,URINE 0.2 EU/dL (0.2)
[2017-09-15 23:38] LABS: RBC,URINE 0-2 /HPF (0-2)
[2017-09-15 23:39] LABS: BACTERIA,URINE Few /HPF (None Seen); SQUAMOUS EPITHELIAL CELL,UR Few /HPF (None Seen); URIC ACID CRYSTALS,URINE Moderate /HPF (None Seen)
[2017-09-16] MEDS: PIPERACILLIN /TAZOBACTAM 3.375 G in IV D5W 50 ML IV SCH ×4 (05:21→23:21)
[2017-09-16] MEDS: VANCOMYCIN 0.75 GM in IV D5W 250 ML IV SCH ×2 (06:02→18:19)
--- NOTE | 2017-09-16 06:34 | NUR ---
RN NOTES SLEEPING BUT AROUSABLE, NO PAIN NOTED, NO SOB, MORNING CARE RENDERED, CALL LIGHT WITHIN REACH, [id number], PT. NEEDS ATTENDED
--- NOTE | 2017-09-16 07:59 | NUR ---
MS RN NOTES PATIENT IN BED, AWAKE. BREATHING ON ROOM AIR WITH NO SOB, NO WHEEZING. IVC RFA WITH IVF NS INFUSING AT 60ML/HR. SUPRA PUBIC CATH INTACT, DRAINING TO GRAVITY, BAG OFF THE FLOOR. FOR WOUND CONSULT, MULTIPLE SCAB, SKIN RAISE IN THE HEAD AND BUE, DENIES PAIN. CALL LIGHT WITHIN REACH REACH, WILL CONT TO MONITOR.
[2017-09-16 08:00] VITALS: BP 133/73
[2017-09-16 08:17] LABS: BASOPHILS % (AUTO) 0.4 % (0.0-2.0); EOSINOPHILS % (AUTO) 2.6 % (0.0-6.0); HEMATOCRIT 32 % (39-51); HEMOGLOBIN 11.5 g/dL (13.5-17.5); LYMPHOCYTES # (AUTO) 0.8 /CMM (0.8-4.8); LYMPHOCYTES % (AUTO) 9.7 % (20.0-44.0); MEAN CORPUSCULAR HEMOGLOBIN 31 PG (26.0-33.0); MEAN CORPUSCULAR HGB CONC 36 g/dl (31.0-36.0); MEAN CORPUSCULAR VOLUME 87 fL (80-96); MONOCYTES # (AUTO) 0.4 /CMM (0.1-1.30); NEUTROPHILS % (AUTO) 82.3 % (43.0-81.0); PLATELET COUNT (AUTO) 131 /CMM (150-450); RDW COEFFICIENT OF VARIATION 15.7 (11.5-15.0); RED BLOOD CELL COUNT(AUTO) 3.74 MIL/uL (4.5-6.0); WHITE BLOOD COUNT (AUTO) 8.4 K/uL (4.3-11.0)
[2017-09-16 08:21] LABS: CALCIUM, SERUM 7.6 mg/dL (8.5-10.1); CARBON DIOXIDE 23 mmol/L (21-32); CHLORIDE 109 mmol/L (98-107); CREATININE 0.9 mg/dL (0.6-1.3); GLUCOSE 103 mg/dL (74-106); MAGNESIUM 1.7 mg/dL (1.8-2.4); PHOSPHORUS 2.9 mg/dL (2.5-4.9); POTASSIUM 3.4 mmol/L (3.5-5.1); SODIUM SERUM 142 mmol/L (136-145); UREA NITROGEN, BLOOD 16 mg/dL (7-18)
[2017-09-16] MEDS: PANTOPRAZOLE 40 MG TABLET.DR PO SCH (08:29)
[2017-09-16] MEDS: POTASSIUM CHLORIDE 20 MEQ TAB.PRT.SR PO SCH (08:29)
[2017-09-16] MEDS: DOCUSATE SODIUM 100 MG CAPSULE PO SCH (08:30)
[2017-09-16] MEDS: ASCORBIC ACID 500 MG TABLET PO SCH (08:30)
[2017-09-16] MEDS: METOPROLOL TARTRATE 25 MG TABLET PO SCH ×2 (08:30→17:59)
[2017-09-16] MEDS: SIMVASTATIN 40 MG TABLET PO SCH (08:30)
[2017-09-16] MEDS: ASPIRIN 81 MG TAB.CHEW PO SCH (08:30)
[2017-09-16 08:34] VITALS: BP 133/73
[2017-09-16] MEDS: Magnesium 1GM/D5W 100ML PREMIX 100 ML IV SCH ×2 (10:08→11:12)
--- NOTE | 2017-09-16 11:04 | NUR ---
WOUND CARE CONSULT: PT PRESENTS WITH MULTIPLE DRY SKIN LESIONS TO FACE, CHEST AND HEAD, PRESENT ON ADMISSION. DEFER TO MD FOR LESIONS. PT ALSO NOTED TO HAVE DRY ABRASIONS TO RT LATERAL LOWER LEG AND RT LATERAL ANKLE CALLUS, PRESENT ON ADMISSION. ALL SKIN PROTECTION MEASURES IN PLACE INCLUDING LOW AIRLOSS BED (ARMANDO ISOFLEX). PT NOTED TO HAVE SUPRAPUBIC CATH AND LEFT A.K. STUMP NOTED. WILL SEE PRN. MD IN AGREEMENT WITH PLAN OF CARE. CURRENT SANTANA SCORE IS 14. Addendum: 09/16/17 at 1109 by JENA PEDERSEN WNDNU Amended: Links added.
[2017-09-16 11:52] LABS: LYMPHOCYTES % (MANUAL) 8 % (16-48); MONOCYTES % (MANUAL) 15 % (0-11.0); NEUTROPHILS % (MANUAL) 77 (42-76)
[2017-09-16 16:00] VITALS: BP 138/78
[2017-09-16] MEDS: LACTOBACILLUS RHAMNOSUS GG 1 EACH CAP.SPRINK PO SCH (17:59)
[2017-09-16 18:26] LABS: INR 1.74 (0.87-1.13)
[2017-09-16] MEDS: WARFARIN SODIUM 1 MG TABLET PO SCH (19:17)
[2017-09-16] MEDS: WARFARIN SODIUM 5 MG TABLET PO SCH (19:18)
--- NOTE | 2017-09-16 19:32 | NUR ---
MS RN CLOSING NOTES PATIENT IN BED, A/O X2 FORGETFUL. COOPERATIVE, COMPLIANT WITH MEDICATION. BREATHING ON ROOM AIR WITH NO SOB. SUPRA PUBIC CATH INTACT, DRAINING TO GRAVITY, BAG OFF THE FLOOR. MAGNESIUM REPLACED TODAY ORDERED, ON DAILY DAILY POTASSIUM SUPPLEMENT ORDERED. AFEBRILE DURING THE SHIFT, GOOD APPETITE. CALL LIGHT WITHIN REACH, WILL ENDORSE TO ONCOMING RN.
--- NOTE | 2017-09-16 19:33 | NUR ---
RN NOTES RECEIVED PT AWAKE, HOB ELEVATED, ON ROOM AIR AND TOLERATED WELL. PT ALERT AND ORIENTED X2, FORGETFUL WITH PERIODS OF CONFUSION. PT DENIES PAIN AND DISCOMFORT AT THIS TIME. IV ACCESS ON RIGHT ARM PATENT AND INTACT WITH ONGOING IVF INFUSING WELL. SUPRAPUBIC CATH INTACT. KEPT PT CLEAN AND DRY. WILL CONTINUE TO MONITOR PT.
[2017-09-16] MEDS: IV NS 0.9% 1,000 ML IV PRN (19:53)
[2017-09-16 20:00] VITALS: BP 141/78
[2017-09-16] MEDS: DOCUSATE SODIUM 250 MG CAPSULE PO SCH (21:43)
[2017-09-17] MEDS: VANCOMYCIN 0.75 GM in IV D5W 250 ML IV SCH ×2 (04:30→17:26)
[2017-09-17] MEDS: PIPERACILLIN /TAZOBACTAM 3.375 G in IV D5W 50 ML IV SCH ×3 (05:34→18:41)
--- NOTE | 2017-09-17 06:20 | NUR ---
RN NOTES PT AWAKE, HOB ELEVATED, ON ROOM AIR AND TOLERATED WELL. VITAL SIGNS STABLE, AFEBRILE. NO COMPLAIN OF PAIN AND DISCOMFORT. KEPT CLEAN AND DRY. TURNED AND REPOSITIONED PER PROTOCOL. ALL NEEDS MET. NO SIGNIFICANT CHANGE IN CONDITION NOTED. WILL ENDORSE TO MORNING RN FOR CONTINUITY OF CARE.
[2017-09-17 06:44] LABS: CALCIUM, SERUM 7.7 mg/dL (8.5-10.1); CARBON DIOXIDE 26 mmol/L (21-32); CHLORIDE 105 mmol/L (98-107); GLUCOSE 101 mg/dL (74-106); POTASSIUM 3.7 mmol/L (3.5-5.1); SODIUM SERUM 136 mmol/L (136-145); UREA NITROGEN, BLOOD 20 mg/dL (7-18)
[2017-09-17 08:00] VITALS: BP 149/80
--- NOTE | 2017-09-17 08:00 | NUR ---
MS RN NOTES PATIENT IN BED, AWAKE. A/O X2, FORGETFUL. BREATHING ON ROOM AIR WITH NO SOB. NON PRODUCTIVE COUGH, NO WHEEZING. IVC RFA WITH IVF NS INFUSING AT 60ML/HR, DENIES PAIN. SUPRA PUBIC CATH INTACT, DRAINING TO GRAVITY, URINE MARINO COLOR. MAINTAINED SAFETY, CALL LIGHT WITHIN REACH, WILL CONT TO MONITOR.
[2017-09-17] MEDS: PANTOPRAZOLE 40 MG TABLET.DR PO SCH (08:23)
[2017-09-17] MEDS: ASPIRIN 81 MG TAB.CHEW PO SCH (08:23)
[2017-09-17] MEDS: POTASSIUM CHLORIDE 20 MEQ TAB.PRT.SR PO SCH (08:23)
[2017-09-17] MEDS: DOCUSATE SODIUM 100 MG CAPSULE PO SCH (08:23)
[2017-09-17] MEDS: LACTOBACILLUS RHAMNOSUS GG 1 EACH CAP.SPRINK PO SCH ×2 (08:23→17:26)
[2017-09-17] MEDS: SIMVASTATIN 40 MG TABLET PO SCH (08:24)
[2017-09-17] MEDS: ASCORBIC ACID 500 MG TABLET PO SCH (08:24)
[2017-09-17] MEDS: METOPROLOL TARTRATE 25 MG TABLET PO SCH ×2 (08:29→16:46)
[2017-09-17 16:00] VITALS: BP_SYST 157; BP_DIAS 90; BP_DIAS 91
[2017-09-17 17:10] LABS: INR 1.63 (0.87-1.13)
[2017-09-17] MEDS ORDERED: hydrALAZINE HCL IV 20 MG VIAL IV ONE (17:30)
[2017-09-17] MEDS: WARFARIN SODIUM 5 MG TABLET PO SCH (18:12)
[2017-09-17] MEDS: WARFARIN SODIUM 1 MG TABLET PO SCH (18:13)
--- NOTE | 2017-09-17 19:00 | NUR ---
MS RN CLOSING NOTES PATIENT IN BED, A/O X2 FORGETFUL. COOPERATIVE, COMPLIANT WITH MEDICATION. BREATHING ON ROOM AIR WITH NO SOB. SUPRA PUBIC CATH INTACT, DRAINING TO GRAVITY, URINE CLEAR AND YELLOW, NO SEDIMENT. BAG OFF THE FLOOR. MAGNESIUM REPLACED TODAY ORDERED, ON DAILY DAILY POTASSIUM SUPPLEMENT ORDERED. AFEBRILE DURING THE SHIFT, GOOD APPETITE. CALL LIGHT WITHIN REACH, WILL ENDORSE TO ONCOMING RN. Addendum: 09/17/17 at 1918 by VERNA LOTT RN CLARIFICATION ABOVE NOTES, NO MAGNESIUM REPLACEMENT TODAY.
--- NOTE | 2017-09-17 19:15 | NUR ---
MS RN OPENING NOTES PATIENT IN BED WAITING FOR DISCHARGE. DISCHARGE WAS DELAYED DUE TO ELEVATED BP. HYDRALAZINE 10MG IVP X1 GIVEN BY PREVIOUS SHIFT. WILL REASSESS PT BP. SAFETY PRECAUTIONS IN PLACE, CALL LIGHT WITHIN REACH.
--- NOTE | 2017-09-17 19:25 | NUR ---
MS MILK ROUTE DELIVERER NOTES PATIENT HAS BEEN CLEARED FOR DISCHARGE BY CESAR STEVENSON. CALLED [facility], SPOKE WITH ELI FORBES FOR REPORT. UPON AMBULANCE ARRIVED, AND RECHECKED PATIENT WITH ELEVATED BP 190/112 P83, DENIES HEADACHE OR DIZZINESS. NOTIFIED CESAR STEVENSON. HYDRALAZINE 10MG IVP X1 GIVEN, WILL REASSESS. CALL MADE TO [facility] SPOKE TO PARRIS FOR UPDATES. ENDORSE TO SALAZAR SANCHEZ ONCOMING RN.
[2017-09-17 20:00] VITALS: BP 128/76
[2017-09-17 21:18] VITALS: BP 128/76
[2017-09-17] MEDS: DOCUSATE SODIUM 250 MG CAPSULE PO SCH (22:00)
--- NOTE | 2017-09-17 23:45 | NUR ---
MS RN - DISCHARGE NOTES PT LEFT UNIT VIA GURNEY BY ZORAN. PT A/O X2, PATIENT MEDICALLY STABLE WHEN PICKED UP. TRANSFERRED TO [facility]. IV REMOVED. REPORT GIVEN TO ceramic maker demonstrator.
== END 2017-09-17 23:40 | DRG 689 ==
LOC: TELE 09-15 01:02 → MED 09-15 10:24
PROVIDERS: ADMIT Internal Medicine; ATTEND Nurse Practitioner Acute Care
DX: N39.0 Urinary tract infection, site not specified (principal); G93.41 Metabolic encephalopathy; R53.2 Functional quadriplegia; E87.1 Hypo-osmolality and hyponatremia; Z86.73 Personal history of transient ischemic attack (TIA), and cerebral infarction without residual deficits
CPT/HCPCS: 36415; 71045-TC; 80048-TC; 80053-TC; 80061-TC; 80202-TC; 81000-TC; 83605-TC; 83735-TC; 83880; 84100-TC; 84443-TC; 84484-TC; 85025-TC; 85610-TC; 87081-TC; 87086-TC; 87186-TC; J0360; J2543; J3370; J3475; J3480; J7030; J7050; J7060; Z7610